=== PATIENT | female | born 1935 | race Two or more races ===

== ENCOUNTER 2019-09-19 21:24 | Emergency (ER) | payer OTHER ==
[~2019-09-19] VITALS: Ht 152.4 cm; Wt 65.3 kg
[2019-09-19 21:36] VITALS: Ht 152.4 cm; Wt 65.3 kg
[2019-09-20 00:13] VITALS: BP 150/87
== END 2019-09-20 00:13 | disposition home or self-care (01) ==
LOC: ED 21:24
DX: S00.11XA Contusion of right eyelid and periocular area, initial encounter (principal); S80.211A Abrasion, right knee, initial encounter; S09.8XXA Other specified injuries of head, initial encounter; I10 Essential (primary) hypertension; E78.00 Pure hypercholesterolemia, unspecified; E03.9 Hypothyroidism, unspecified; Z90.12 Acquired absence of left breast and nipple; Z98.890 Other specified postprocedural states; W18.09XA Striking against other object with subsequent fall, initial encounter; Y93.89 Activity, other specified; Y92.89 Other specified places as the place of occurrence of the external cause; Y99.8 Other external cause status